=== PATIENT | male | born 1975 ===

== ENCOUNTER 2020-08-27 19:55 | Inpatient (IN) | payer OTHER ==
[~2020-08-27] VITALS: Ht 55.9 cm; Wt 5.0 kg
[~2020-08-27 19:55] MED LIST: BACTROBAN OINT NASAL; GLIMEPIRIDE4 MG PO; HIBICLENS TP; LISINOPRIL10 MG PO; Lantus 1000 U/10 ML SUBCUTANEO; METFORMIN HCL500 MG PO; Zestril PO
[2020-08-27] MEDS ORDERED: ATORVASTATIN CA20 MG (20:19)
[2020-08-27] MEDS ORDERED: LANTUS SOL100 UNIT/1 (20:19)
[2020-08-27] MEDS ORDERED: COZAAR25 MG (20:19)
[2020-08-27] MEDS ORDERED: HUMALOG100 UNIT/2 (20:19)
[2020-09-24] MEDS ORDERED: CLOPIDOGREL BIS75 MG PO (17:32)
== END 2020-09-01 18:51 | disposition designated cancer center or children's hospital (05) | DRG 65 ==
LOC: ER 19:55 → MEDJ 08-28 15:03 → MEDI 08-28 15:03 → MEDJ 08-28 17:03
PROVIDERS: ADMIT Internal Medicine; ATTEND Internal Medicine
PROC: BW38ZZZ Magnetic Resonance Imaging (MRI) of Head (ICD-10-PCS; principal; 2020-08-28)
PROC: BW28ZZZ Computerized Tomography (CT Scan) of Head (ICD-10-PCS; 2020-08-28)
PROC: 4A12X4Z Monitoring of Cardiac Electrical Activity, External Approach (ICD-10-PCS; 2020-08-29)
PROC: B345ZZZ Ultrasonography of Bilateral Common Carotid Arteries (ICD-10-PCS; 2020-08-30)
PROC: B24BYZZ Ultrasonography of Heart with Aorta using Other Contrast (ICD-10-PCS; 2020-08-30)
DX: I63.89 Other cerebral infarction (principal); N17.9 Acute kidney failure, unspecified; G81.94 Hemiplegia, unspecified affecting left nondominant side; G37.9 Demyelinating disease of central nervous system, unspecified; G37.8 Other specified demyelinating diseases of central nervous system; I10 Essential (primary) hypertension; E11.65 Type 2 diabetes mellitus with hyperglycemia; E11.22 Type 2 diabetes mellitus with diabetic chronic kidney disease; E78.5 Hyperlipidemia, unspecified; Z79.4 Long term (current) use of insulin
CPT/HCPCS: 70551